=== PATIENT | female | born 1950 | race African-American/Black ===

== ENCOUNTER 2016-09-30 14:28 | Inpatient (IN) | payer MEDICARE, MEDICAID ==
[~2016-09-30] VITALS: Ht 172.7 cm; Wt 96.3 kg
[2016-09-30] MEDS ORDERED: DILAUDID 1 MG/ML AMP ONE (18:24)
[2016-09-30] MEDS ORDERED: ONDANSETRON 4 MG VIAL ONE (18:25)
[2016-09-30] MEDS ORDERED: BISACODYL 10 MG SUPP RECTAL PRN (18:55)
[2016-09-30] MEDS ORDERED: SALINE FLUSH 10 ML FLUSH PRN (18:55)
[2016-09-30] MEDS ORDERED: ACETAMINOPHEN 325 MG TAB PO PRN (18:55)
[2016-09-30] MEDS ORDERED: MAG HYDROX 30 ML UDC PO PRN (18:55)
[2016-09-30] MEDS ORDERED: ONDANSETRON 4 MG VIAL IV PRN (18:55)
[2016-09-30] MEDS ORDERED: BISACODYL EC 5 MG TAB PO PRN (18:55)
[2016-09-30] MEDS ORDERED: ALU/MAG/SIM 30 ML UDC PO PRN (18:55)
[2016-09-30] MEDS ORDERED: ONDANSETRON 4 MG TAB PO PRN (19:00)
[2016-09-30] MEDS ORDERED: SODIUM CHLORIDE 0.9% 1,000 ML IV SCH (19:05)
[2016-09-30] MEDS ORDERED: PANTOPRAZOLE 40 MG TAB PO SCH (21:00)
[2016-09-30] MEDS ORDERED: OMEPRAZOLE 40 MG PO SCH (21:00)
[2016-09-30 22:00] VITALS: BP_SYST 168; RESP 18; TEMP 97.8
[2016-09-30 23:00] VITALS: RESP 16
[2016-09-30] MEDS: Hydrocodone/APAP 10/325 MG TAB PO PRN (23:39)
[2016-10-01] MEDS: LINEZOLID 600 MG/300 ML 300 ML IV SCH ×2 (01:12→08:52)
[2016-10-01] MEDS: SODIUM CHLORIDE 0.9% FLUSH BAG 500 ML IV SCH (01:44)
[2016-10-01] MEDS: Carvedilol 6.25 MG TAB PO SCH ×3 (02:18→20:09)
[2016-10-01] MEDS: FAMOTIDINE 20 MG TAB PO SCH ×3 (02:18→20:09)
[2016-10-01] MEDS: PANTOPRAZOLE 40 MG TAB PO SCH ×2 (02:18→20:09)
[2016-10-01] MEDS: APIXABAN 5 MG TAB PO SCH ×3 (02:18→20:09)
[2016-10-01] MEDS: DOXYCYCLINE 100 MG in SODIUM CHLORIDE 0.9% 250 ML IV SCH ×2 (02:19→11:23)
[2016-10-01] MEDS: SALINE FLUSH 10 ML FLUSH SCH ×3 (02:23→20:09)
[2016-10-01 03:26] VITALS: BP_SYST 156; RESP 18; TEMP 98.6
[2016-10-01] MEDS ORDERED: LEVOTHYROXINE 0.05 MG TAB PO SCH (07:00)
[2016-10-01 07:23] VITALS: BP_SYST 146; RESP 18; TEMP 98.4
[2016-10-01] MEDS ORDERED: ACETAMINOPHEN 325 MG TAB PO PRN (08:50)
[2016-10-01] MEDS ORDERED: DUONEB INH PRN (08:50)
[2016-10-01] MEDS: amLODIPine 5 MG TAB PO SCH (08:55)
[2016-10-01] MEDS: Hydrocodone/APAP 10/325 MG TAB PO PRN ×3 (08:55→18:22)
[2016-10-01] MEDS ORDERED: amLODIPine 5 MG TAB PO SCH (09:00)
[2016-10-01] MEDS ORDERED: BUMETANIDE 1 MG TAB PO SCH (09:00)
[2016-10-01] MEDS: METOLAZONE 2.5 MG TAB PO SCH (09:22)
[2016-10-01] MEDS: GABAPENTIN 100 MG CAP PO SCH ×3 (09:22→20:09)
[2016-10-01] MEDS: SACCHA BOULARDII 250MG CAP PO SCH ×2 (09:22→20:09)
[2016-10-01] MEDS: DOCUSATE SOD 100 MG CAP PO SCH (09:22)
[2016-10-01] MEDS: KCL CR 10 MEQ TAB PO SCH (09:22)
[2016-10-01] MEDS: SPIRONOLACTONE 25 MG TAB PO SCH (09:23)
[2016-10-01 11:23] VITALS: BP_SYST 161; RESP 18; TEMP 98.2
[2016-10-01 15:09] VITALS: BP_SYST 136; RESP 18; TEMP 98.4
[2016-10-01] MEDS ORDERED: AZITHROMYCIN 250 MG TAB PO ONE (17:50)
[2016-10-01] MEDS: PREDNISONE 20 MG TAB PO SCH (18:21)
[2016-10-01] MEDS: BUMETANIDE 1 MG/4 ML VIAL IV SCH (18:45)
[2016-10-01 19:14] VITALS: BP_SYST 146; RESP 18; TEMP 98.1
[2016-10-01] MEDS: NEB-BROVANA 15 MCG/2 ML INH SCH (22:41)
[2016-10-01] MEDS: NEB-BUDESONIDE 0.5 MG INH SCH (22:41)
[2016-10-01 23:09] VITALS: BP_SYST 152; RESP 18; TEMP 98.9
[2016-10-02 03:07] VITALS: BP_SYST 166; RESP 18; TEMP 97.8
[2016-10-02] MEDS: Hydrocodone/APAP 10/325 MG TAB PO PRN ×4 (03:13→21:18)
[2016-10-02] MEDS: SODIUM CHLORIDE 0.9% FLUSH BAG 500 ML IV SCH (05:46)
[2016-10-02] MEDS: LEVOTHYROXINE 0.088 MG TAB PO SCH (06:25)
[2016-10-02] MEDS: LINZESS 145 MCG CAPSULE PO SCH (06:25)
[2016-10-02] MEDS: NEB-BUDESONIDE 0.5 MG INH SCH ×2 (06:51→18:34)
[2016-10-02] MEDS: NEB-BROVANA 15 MCG/2 ML INH SCH ×2 (06:51→18:34)
[2016-10-02 08:48] VITALS: BP_SYST 165; RESP 16; TEMP 97.7
[2016-10-02] MEDS: PANTOPRAZOLE 40 MG TAB PO SCH (09:07)
[2016-10-02] MEDS: SPIRONOLACTONE 25 MG TAB PO SCH (09:07)
[2016-10-02] MEDS: SACCHA BOULARDII 250MG CAP PO SCH ×2 (09:07→20:02)
[2016-10-02] MEDS: APIXABAN 5 MG TAB PO SCH ×2 (09:08→20:02)
[2016-10-02] MEDS: KCL CR 10 MEQ TAB PO SCH (09:08)
[2016-10-02] MEDS: DOCUSATE SOD 100 MG CAP PO SCH (09:08)
[2016-10-02] MEDS: GABAPENTIN 100 MG CAP PO SCH ×3 (09:08→20:02)
[2016-10-02] MEDS: amLODIPine 5 MG TAB PO SCH (09:08)
[2016-10-02] MEDS: Carvedilol 6.25 MG TAB PO SCH ×2 (09:08→20:02)
[2016-10-02] MEDS: PREDNISONE 20 MG TAB PO SCH (09:08)
[2016-10-02] MEDS: SALINE FLUSH 10 ML FLUSH SCH ×2 (09:09→20:01)
[2016-10-02] MEDS: BUMETANIDE 1 MG/4 ML VIAL IV SCH ×2 (09:09→16:53)
[2016-10-02] MEDS: FAMOTIDINE 20 MG TAB PO SCH ×2 (09:10→20:02)
[2016-10-02] MEDS ORDERED: MISSING DOSE XX ONE (09:15)
[2016-10-02] MEDS: AZITHROMYCIN 250 MG TAB PO SCH (10:04)
[2016-10-02 11:37] VITALS: BP_SYST 159; RESP 16; TEMP 98.3
[2016-10-02 16:23] VITALS: BP_SYST 161; RESP 16; TEMP 98.5
[2016-10-02 18:26] VITALS: Ht 172.7 cm; Wt 96.3 kg
[2016-10-02 19:17] VITALS: BP_SYST 150; RESP 18; TEMP 97.8
[2016-10-02 22:53] VITALS: BP_SYST 163; RESP 18; TEMP 98.1
[2016-10-03] VITALS (8 sets, daily range): BP systolic 138–170; RESP 14–18; TEMP 97.8–98.7
[2016-10-03] MEDS: SODIUM CHLORIDE 0.9% FLUSH BAG 500 ML IV SCH (05:39)
[2016-10-03] MEDS: LEVOTHYROXINE 0.088 MG TAB PO SCH (06:11)
[2016-10-03] MEDS: LINZESS 145 MCG CAPSULE PO SCH (06:11)
[2016-10-03] MEDS: NEB-BUDESONIDE 0.5 MG INH SCH ×2 (07:14→19:31)
[2016-10-03] MEDS: NEB-BROVANA 15 MCG/2 ML INH SCH ×2 (07:14→19:31)
[2016-10-03] MEDS ORDERED: MISSING DOSE XX ONE (08:40)
[2016-10-03] MEDS: SPIRONOLACTONE 25 MG TAB PO SCH (08:46)
[2016-10-03] MEDS: APIXABAN 5 MG TAB PO SCH ×2 (08:46→21:35)
[2016-10-03] MEDS: SACCHA BOULARDII 250MG CAP PO SCH ×2 (08:46→21:36)
[2016-10-03] MEDS: BUMETANIDE 1 MG/4 ML VIAL IV SCH ×2 (08:46→18:13)
[2016-10-03] MEDS: METOLAZONE 2.5 MG TAB PO SCH (08:46)
[2016-10-03] MEDS: SALINE FLUSH 10 ML FLUSH SCH ×2 (08:46→21:35)
[2016-10-03] MEDS: amLODIPine 5 MG TAB PO SCH (08:47)
[2016-10-03] MEDS: GABAPENTIN 100 MG CAP PO SCH ×3 (08:47→21:35)
[2016-10-03] MEDS: Carvedilol 6.25 MG TAB PO SCH ×2 (08:47→21:35)
[2016-10-03] MEDS: KCL CR 10 MEQ TAB PO SCH (08:47)
[2016-10-03] MEDS: FAMOTIDINE 20 MG TAB PO SCH ×2 (08:47→21:35)
[2016-10-03] MEDS: PREDNISONE 20 MG TAB PO SCH (08:57)
[2016-10-03] MEDS: AZITHROMYCIN 250 MG TAB PO SCH (08:57)
[2016-10-03] MEDS: DOCUSATE SOD 100 MG CAP PO SCH (08:57)
[2016-10-03] MEDS: Hydrocodone/APAP 10/325 MG TAB PO PRN ×2 (08:57→21:42)
[2016-10-03] MEDS: PANTOPRAZOLE 40 MG TAB PO SCH (21:35)
[2016-10-04] VITALS (9 sets, daily range): BP systolic 142–161; RESP 18–20; TEMP 97.2–98.5
[2016-10-04] MEDS: SODIUM CHLORIDE 0.9% FLUSH BAG 500 ML IV SCH (06:00)
[2016-10-04] MEDS: NEB-BROVANA 15 MCG/2 ML INH SCH ×2 (06:31→18:37)
[2016-10-04] MEDS: NEB-BUDESONIDE 0.5 MG INH SCH ×2 (06:31→18:37)
[2016-10-04] MEDS: LINZESS 145 MCG CAPSULE PO SCH (06:49)
[2016-10-04] MEDS: LEVOTHYROXINE 0.088 MG TAB PO SCH (06:49)
[2016-10-04] MEDS: Hydrocodone/APAP 10/325 MG TAB PO PRN ×2 (09:00→15:43)
[2016-10-04] MEDS: BUMETANIDE 1 MG/4 ML VIAL IV SCH ×2 (09:00→16:13)
[2016-10-04] MEDS: AZITHROMYCIN 250 MG TAB PO SCH (09:00)
[2016-10-04] MEDS: amLODIPine 5 MG TAB PO SCH (09:00)
[2016-10-04] MEDS: GABAPENTIN 100 MG CAP PO SCH ×3 (09:00→20:12)
[2016-10-04] MEDS: FAMOTIDINE 20 MG TAB PO SCH ×2 (09:00→20:12)
[2016-10-04] MEDS: KCL CR 10 MEQ TAB PO SCH (09:01)
[2016-10-04] MEDS: Carvedilol 6.25 MG TAB PO SCH ×2 (09:01→20:12)
[2016-10-04] MEDS: APIXABAN 5 MG TAB PO SCH ×2 (09:01→20:12)
[2016-10-04] MEDS: SACCHA BOULARDII 250MG CAP PO SCH ×2 (09:01→20:12)
[2016-10-04] MEDS: PREDNISONE 20 MG TAB PO SCH (09:01)
[2016-10-04] MEDS: DOCUSATE SOD 100 MG CAP PO SCH (09:01)
[2016-10-04] MEDS: SPIRONOLACTONE 25 MG TAB PO SCH (09:01)
[2016-10-04] MEDS: SALINE FLUSH 10 ML FLUSH SCH ×2 (09:02→20:12)
[2016-10-04] MEDS: DUONEB INH PRN (18:37)
[2016-10-04] MEDS: PANTOPRAZOLE 40 MG TAB PO SCH (20:12)
[2016-10-05] VITALS (7 sets, daily range): BP systolic 130–154; RESP 16–18; TEMP 98.1–98.9
[2016-10-05] MEDS: SODIUM CHLORIDE 0.9% FLUSH BAG 500 ML IV SCH (05:57)
[2016-10-05] MEDS: LEVOTHYROXINE 0.088 MG TAB PO SCH (06:01)
[2016-10-05] MEDS: LINZESS 145 MCG CAPSULE PO SCH (06:01)
[2016-10-05] MEDS: Hydrocodone/APAP 10/325 MG TAB PO PRN ×2 (06:02→20:47)
[2016-10-05] MEDS: NEB-BUDESONIDE 0.5 MG INH SCH ×2 (06:55→19:44)
[2016-10-05] MEDS: DUONEB INH PRN ×3 (06:55→23:05)
[2016-10-05] MEDS: NEB-BROVANA 15 MCG/2 ML INH SCH ×2 (06:55→19:44)
[2016-10-05] MEDS ORDERED: BISACODYL EC 5 MG TAB PO ONE (08:55)
[2016-10-05] MEDS: amLODIPine 5 MG TAB PO SCH (09:04)
[2016-10-05] MEDS: FAMOTIDINE 20 MG TAB PO SCH ×2 (09:04→20:46)
[2016-10-05] MEDS: SACCHA BOULARDII 250MG CAP PO SCH ×2 (09:04→20:47)
[2016-10-05] MEDS: DOCUSATE SOD 100 MG CAP PO SCH (09:04)
[2016-10-05] MEDS: BUMETANIDE 1 MG/4 ML VIAL IV SCH ×2 (09:04→17:56)
[2016-10-05] MEDS: PREDNISONE 20 MG TAB PO SCH (09:04)
[2016-10-05] MEDS: APIXABAN 5 MG TAB PO SCH ×2 (09:04→20:47)
[2016-10-05] MEDS: SPIRONOLACTONE 25 MG TAB PO SCH (09:04)
[2016-10-05] MEDS: GABAPENTIN 100 MG CAP PO SCH ×3 (09:04→20:47)
[2016-10-05] MEDS: AZITHROMYCIN 250 MG TAB PO SCH (09:05)
[2016-10-05] MEDS: KCL CR 10 MEQ TAB PO SCH (09:05)
[2016-10-05] MEDS: Carvedilol 6.25 MG TAB PO SCH ×2 (09:05→20:46)
[2016-10-05] MEDS: SALINE FLUSH 10 ML FLUSH SCH (09:05)
[2016-10-05] MEDS: METOLAZONE 2.5 MG TAB PO SCH (09:18)
[2016-10-05] MEDS: PANTOPRAZOLE 40 MG TAB PO SCH (20:47)
[2016-10-06] MEDS ORDERED: SODIUM CHLORIDE 0.9% FLUSH BAG 500 ML IV SCH (06:00)
== END 2016-10-05 23:40 | DRG 202 ==
LOC: ENRESERV → ENRESERVTM → ENRESERVDT → ER 14:28 → DELPENDDIS 18:53 → ENPENDDIS 18:53 → EMR 18:53 → PCU 20:52 → 4NT 10-05 11:57
PROVIDERS: ADMIT Internal Medicine; ATTEND Internal Medicine
DX: J40 Bronchitis, not specified as acute or chronic (principal); J44.1 Chronic obstructive pulmonary disease with (acute) exacerbation; N17.9 Acute kidney failure, unspecified; I42.9 Cardiomyopathy, unspecified; E11.22 Type 2 diabetes mellitus with diabetic chronic kidney disease; I13.0 Hypertensive heart and chronic kidney disease with heart failure and stage 1 through stage 4 chronic kidney disease, or unspecified chronic kidney disease; I50.22 Chronic systolic (congestive) heart failure; E66.01 Morbid (severe) obesity due to excess calories; I27.2 Other secondary pulmonary hypertension; N18.9 Chronic kidney disease, unspecified; Z87.891 Personal history of nicotine dependence; E03.9 Hypothyroidism, unspecified; Z68.38 Body mass index [BMI] 38.0-38.9, adult; I07.1 Rheumatic tricuspid insufficiency; Z86.711 Personal history of pulmonary embolism; Z79.01 Long term (current) use of anticoagulants; Z86.73 Personal history of transient ischemic attack (TIA), and cerebral infarction without residual deficits
CPT/HCPCS: 36415; 71010; 78580; 80048; 80053; 82274; 83605; 83880; 84145; 85025; 87040; 87804; 93306; 93970; 94640; 96374; 96375; 99223; 99231; 99232; 99233; 99239